=== PATIENT | female | born 1975 | race African-American/Black ===

== ENCOUNTER 2021-10-16 10:57 | Emergency (ER) | payer MEDICAID ==
[~2021-10-16] VITALS: Ht 152.4 cm; Wt 50.0 kg
[2021-10-16] MEDS ORDERED: SODIUM CHLORIDE 0.9% 1,000 ML IV ONE (11:30)
[2021-10-16] MEDS ORDERED: MIDAZOLAM HCL 2 MG/2 ML VIAL IV ONE (11:30)
[2021-10-16] MEDS ORDERED: LEVETIRACETAM 500MG PREMIX 100 ML IV ONE (11:30)
[2021-10-16 12:40] LABS: BASOPHILS % 1.3 % (0.0-2.0); HEMATOCRIT. 39.4 % (36.0-48.0); HEMOGLOBIN. 12.3 g/dL (12.0-16.0); LYMPHOCYTES % 11.3 % (20.0-50.0); MEAN CORPUSCULAR HEMOGLOBIN 21.5 pg (28.0-32.0); MEAN CORPUSCULAR VOLUME 69.1 fL (81.0-99.0); MEAN PLATELET VOLUME 9.3 fl (7.4-10.4); NEUTROPHILS % 82.4 % (40.0-76.0); PLATELET 273 x1000/uL (130-400); RED BLOOD CELL COUNT 5.71 mill/uL (4.2-5.4)
[2021-10-16 13:37] LABS: PLATELET ESTIMATE NORMAL
[2021-10-16 14:52] LABS: ETHANOL BLOOD < 10 mg/dL; VALPROIC ACID <3.0 ug/mL ug/mL (50-100)
[2021-10-16 15:01] LABS: CARBAMAZEPINE < 0.5 ug/mL (4-12); PHENOBARBITAL < 2.1 ug/mL (15.0-40.0)
[2021-10-16 15:16] LABS: CHLORIDE 111 mEq/L (98-107)
[2021-10-16 15:34] LABS: HCG SCREEN NEGATIVE
[2021-10-16] MEDS ORDERED: KEPP500 MT (16:01)
[2021-10-16 17:03] LABS: CLARITY URINE CLEAR (CLEAR); COLOR URINE YELLOW (YELLOW); KETONES URINE NEGATIVE (NEGATIVE); LEUKOCYTE ESTERASE URINE TRACE (NEGATIVE); NITRITE URINE NEGATIVE (NEGATIVE); OCCULT BLOOD URINE NEGATIVE (NEGATIVE); PROTEIN URINE NEGATIVE (NEGATIVE); SPECIFIC GRAVITY URINE 1.008 (1.005-1.030)
[2021-10-16 17:27] LABS: *BARBITURATES SCREEN URINE NEGATIVE (NEGATIVE); CANNABINOID URINE SCREEN NEGATIVE (NEGATIVE); METHADONE URINE SCREEN NEGATIVE (NEGATIVE); OPIATES URINE SCREEN NEGATIVE (NEGATIVE); PHENCYCLIDINE URINE SCREEN NEGATIVE (NEGATIVE)
[2021-10-16 17:29] LABS: *AMPHETAMINES SCREEN URINE PRESUMTIVE POSITIVE (NEGATIVE)
[2021-10-16 17:30] LABS: *BENZODIAZEPINES SCREEN URINE PRESUMTIVE POSITIVE (NEGATIVE); *COCAINE SCREEN URINE PRESUMTIVE POSITIVE (NEGATIVE)
[2021-10-16 20:00] VITALS: BP 154/94
[2021-10-16] MEDS ORDERED: AMOX1TAB16 MT (20:07)
[2021-10-16] MEDS ORDERED: OFLO5DRO4 LEFT EAR (20:10)
== END 2021-10-16 21:06 | disposition home or self-care (01) ==
LOC: ER 10:57
DX: G40.909 Epilepsy, unspecified, not intractable, without status epilepticus (principal); F15.10 Other stimulant abuse, uncomplicated; F14.10 Cocaine abuse, uncomplicated; I10 Essential (primary) hypertension; E11.9 Type 2 diabetes mellitus without complications; Z59.00 Homelessness unspecified
CPT/HCPCS: 36415; 80053; 80156; 80165; 80184; 80185; 80305; 80307; 80320; 80329; 81003; 84703; 85025; 93005; 96374; 96375; 99285; J1953; J2250; J7030; G0480